=== PATIENT | male | born 1995 | race Caucasian/White ===

== ENCOUNTER 2018-01-30 03:09 | Emergency (ER) | payer SELFPAY ==
[2018-01-30] MEDS: HYDROcodone/APAP 10/325 1 TAB TABLET PO (05:55)
== END 2018-01-30 06:06 | disposition home or self-care (01) ==
LOC: ER 03:09
DX: S99.912A Unspecified injury of left ankle, initial encounter (principal); S59.901A Unspecified injury of right elbow, initial encounter; M54.5 Low back pain; F12.10 Cannabis abuse, uncomplicated; W10.9XXA Fall (on) (from) unspecified stairs and steps, initial encounter; Y93.89 Activity, other specified; Y99.8 Other external cause status; Y92.89 Other specified places as the place of occurrence of the external cause
CPT/HCPCS: 73080; 73610; 99284; L4350